=== PATIENT | female | born 1965 | race Hispanic/Latino ===

== ENCOUNTER 2017-10-21 18:18 | Emergency (ER) | payer OTHER ==
[~2017-10-21] VITALS: Ht 157.5 cm; Wt 58.5 kg
[2017-10-21] MEDS: DIPHENHYDRAMINE HCL 25 MG CAP PO ONE (20:16)
[2017-10-21] MEDS: DEXAMETHASONE SOD PHOS 10 MG/1 ML VIAL INJ ONE (20:16)
[2017-10-21] MEDS: FAMOTIDINE 20 MG TAB PO ONE (20:16)
== END 2017-10-21 20:23 | disposition home or self-care (01) ==
LOC: ER 18:18
DX: R21 Rash and other nonspecific skin eruption (principal)
CPT/HCPCS: 99282; J1100